=== PATIENT | female | born 1970 | race Caucasian/White ===

== ENCOUNTER 2016-08-11 04:21 | Emergency (ER) | payer OTHER ==
[2016-08-11 04:31] VITALS: BP 163/90
[2016-08-11] MEDS ORDERED: CITALOPRAM HBR20 MG PO (04:38)
[2016-08-11] MEDS ORDERED: CYANOCOBAL1000 MCG/2 IM (04:38)
[2016-08-11] MEDS ORDERED: MACROBID 100 M100 MG PO (05:00)
[2016-08-11] MEDS ORDERED: PYRIDIUM200 M1 PO (05:00)
--- NOTE | 2016-08-11 05:01 | ED GI/GU/ABDOMINAL COMPLAINT ---
History of Present Illness General Chief Complaint: Female Urogenital Problems Stated Complaint: THINKS UTI PER PT, OR NEW MED CITALOPRAM Source: patient, old records Exam Limitations: no limitations Vital Signs & Intake/Output Vital Signs & Intake/Output Vital Signs Date Time Temp Pulse Resp B/P Pulse O2 O2 Flow FiO2 Ox Delivery Rate 08/11 0431 97.7 88 22 163/90 98 Allergies Coded Allergies: NO KNOWN ALLERGIES (08/11/16) Reconcile Medications Citalopram Hydrobromide (Citalopram HBr) 20 MG TABLET 1 TAB PO DAILY ANXIETY (Reported) Cyanocobalamin (Vitamin B-12) (Cyanocobalamin Injection) 1,000 MCG/ML VIAL 1 ML IM Q30D VITAMINS (Reported) Nitrofurantoin Monohyd/M-Cryst (Macrobid 100 MG Capsule) 100 MG CAPSULE 1 CAP PO BID uti with food Phenazopyridine HCl (Pyridium) 200 MG TABLET 1 TAB PO TID dysuria Triage Note: PER PT UP ALL NIGHT PEEING JUST A LITTLE BIT NO BLOOD, PAIN 6/10 WITH VOIDING Triage Nurses Notes Reviewed? yes LMP (ages 10-50): unknown ? n Is pt currently ? No Onset: Evening Duration: hour(s):, constant, continues in ED Timing: recent history Quality/Severity: burning, moderate Location: suprapubic, urethral Radiation: no radiation Prior Abdominal Problems: similar symptoms Past Sexual History: Unobtainable at this time Modifying Factors: Worsens With: urinating. Associated Symptoms: dysuria, urinary frequency HPI: Several hours prior to admission patient complains of frequent urination with burning discomfort in small amounts with chills. She denies fever nausea vomiting diarrhea chest pain cough shortness of breath headache rash bleeding. Past History Travel History Traveled to [place] past 21 day No Medical History Any Pertinent Medical History? see below for history Neurological: NONE EENT: NONE Cardiovascular: NONE Respiratory: NONE Gastrointestinal: NONE Hepatic: NONE Renal: NONE Musculoskeletal: NONE Psychiatric: anxiety Surgical History Surgical History: non-contributory Psychosocial History What is your primary language Tajik Tobacco Use: Never used Family History Hx Contributory? No Review of Systems Review of Systems Constitutional: Reports: see HPI, chills. EENTM: Reports: no symptoms. Respiratory: Reports: no symptoms. Cardiovascular: Reports: no symptoms. GI: Reports: no symptoms. Genitourinary: Reports: see HPI, dysuria, frequency, urgency. Musculoskeletal: Reports: no symptoms. Skin: Reports: no symptoms. Neurological/Psychological: Reports: no symptoms. Hematologic/Endocrine: Reports: no symptoms. Immunologic/Allergic: Reports: no symptoms. All Other Systems: Reviewed and Negative Physical Exam Physical Exam General Appearance: well developed/nourished, alert, awake, anxious, mild distress, obese Head: atraumatic, normal appearance Eyes: Bilateral: normal appearance, PERRL, EOMI, normal inspection. Ears, Nose, Throat, Mouth: hearing grossly normal, moist mucous membrane Neck: normal inspection, supple, full range of motion, normal alignment Respiratory: normal breath sounds, chest non-tender, no respiratory distress, quiet respiration, lungs clear Cardiovascular: regular rate/rhythm, normal peripheral pulses, norml femoral pulses equa Peripheral Pulses: 4+ carotid (R), 4+ carotid (L) Gastrointestinal: normal bowel sounds, soft, non-tender, no organomegaly Back: normal inspection, normal range of motion Extremities: normal range of motion, no ligament instability Neurologic/Psych: no motor/sensory deficits, awake, alert, oriented x 3, normal gait, normal mood/affect, 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 No Severe Sepsis Present: No Septic Shock Present: No Progress Differential Diagnosis: UTI/pyelo Plan of Care: Orders Procedure Date/time Status CULTURE,URINE 08/11 431 Active URINALYSIS 08/11 431 Complete Laboratory Tests 08/11/16 0440: Urinalysis LIGHT H, Urine Color YEL, Urine Clarity CLEAR, Urine pH 6.0, Ur Specific [place] 1.025, Urine Protein TRACE H, Urine Ketones NEG, Urine Nitrite NEG, Urine Bilirubin NEG, Urine Urobilinogen 0.2, Ur Leukocyte Esterase NEG, Ur Microscopic SEDIMENT EXAMINED, Urine RBC 1-3, Urine WBC 1-3 H, Ur Epithelial Cells MANY H, Urine Hemoglobin NEG, Urine Glucose NEG Microbiology 08/11 439 URINE ROUT: Urine Culture - RECD Initial ED EKG: none Departure Departure Time of Disposition: 458 Disposition: HOME OR SELF CARE Condition: Stable Clinical Impression Primary Impression: Cystitis Referrals: CARLOS HAJI,DAVE Roe (PCP/Family) Departure Forms: Customer Survey General Discharge Information Prescriptions: Current Visit Scripts Phenazopyridine HCl (Pyridium) 1 TAB PO TID #9 TAB Nitrofurantoin Monohyd/M-Cryst (Macrobid 100 MG Capsule) 1 CAP PO BID #14 CAP with food
== END 2016-08-11 05:05 ==
LOC: ERH 04:21
DX: N30.90 Cystitis, unspecified without hematuria (principal)
CPT/HCPCS: 81001; 87086